=== PATIENT | female | born 1970 | race Caucasian/White ===

== ENCOUNTER 2017-06-05 19:41 | Observation (INO) | payer SELFPAY ==
[~2017-06-05] VITALS: Ht 149.9 cm; Wt 63.2 kg
[~2017-06-05 19:41] MED LIST: BENA25TA8 PO; ECOT81TA2 PO; FISH120014 PO; IBUP600T26 PO; ISOS30 PO; METH40TA9 PO; NITR.4 SL; STOO100T PO; THERM PO; ZOCO10TA PO
[2017-06-05 19:50] VITALS: BP 111/58; PULSE 77; RESP 20; TEMP 98.7; O2SAT 100
[2017-06-05] MEDS ORDERED: ASPI81CH CHEW (19:55)
[2017-06-05] MEDS ORDERED: SODIUM CHLORIDE 0.9% FLUSH 10 ML FLUSH IVF PRN (20:45)
--- NOTE | 2017-06-05 20:45 | PD ---
HPI Chief Complaint: Chest Pain Time Seen by Provider: 20:31 Travel History International Travel<30 days: No Contact w/Intl Traveler<30days: No Traveled to known affect area: No History of Present Illness HPI 46yo F with PMH of CAD s/p bypass 2013 presents to the ED with c/o left sided chest pain since yesterday. Described it as squeezing, intermittent, lasting hours and associated with sob, nausea, and diaphoresis. States it sometimes radiates up her left jaw. Took aspirin and nitroglycerin today. Denies any fever, cough, history of PE, vomiting, abdominal pain, focal weakness or numbness. PFSH Past Medical History Asthma: Yes Blood Disorders: No Anxiety: No Depression: Yes Heart Rhythm Problems: Yes Cancer: No Cardiac Catheterization: Yes Cardiomyopathy: Yes (CARDIAC SPASMS) Cardiovascular Problems: Yes High Cholesterol: Yes Chest Pain: Yes Congestive Heart Failure: Yes Cerebrovascular Accident: No Diminished Hearing: No Endocrine: No Gastrointestinal Disorders: No Genitourinary: No Headaches: Yes Hiatal Hernia: Yes (1995) Hypertension: Yes Immune Disorder: No Musculoskeletal: Yes (CHRONIC BACK PAIN AND ROTATOR CUFF) Neurologic: No Psychiatric: Yes Reproductive: No Respiratory: Yes ?: Not LMP: MONTHS AGO : 4 Para: 4 Tubal Ligation: Yes Past Surgical History Section: Yes Cholecystectomy: Yes Coronary Artery Bypass Graft: Yes Ear Surgery: Yes Genitourinary Surgery: Yes (GALL BLADDER REMOVED 1995) Tonsillectomy: Yes Other Surgery: Yes (HERNIA) Family History Family Myocardial Infarction: Yes Social History Alcohol Use: No Tobacco Use: Yes Substance Use: No Allergies-Medications (Allergen,Severity, Reaction): Coded Allergies: Codeine (Verified Adverse Reaction, Severe, VOMITING, 06/05/17) *MDRO Multi-Drug Resistant Organism (Verified Adverse Reaction, Unknown, ) MRSA Reported Meds & Prescriptions Reported Meds & Active Scripts Active Imdur 30 Mg (Isosorbide Mononitrate) 30 Mg Tabcr 30 Mg PO BID Zocor 10 mg (Simvastatin) 10 Mg Tab 1 Tab PO HS Nitroglycerin Tab 0.4 Mg Sl (Nitroglycerin) 0.4 Mg Subl 0.4 Mg SL Q5M PRN Reported Methadone (Methadone HCl) 40 Mg Tab 40 Mg PO DAILY Aspirin 81 Mg Chew 81 Mg CHEW DAILY Methadone Hcl (Methadone HCl) 40 Mg Tab 40 Mg PO DAILY@0600 Ibuprofen 600 Mg Tab 600 Mg PO Q8H PRN Review of Systems Except as stated in HPI: all other systems reviewed are Neg Physical Exam Narrative GENERAL: 46yo F in moderate distress. SKIN: Focused skin assessment warm/dry. HEAD: Atraumatic. Normocephalic. EYES: Pupils equal and round. No scleral icterus. No injection or drainage. ENT: No nasal bleeding or discharge. Mucous membranes pink and moist. NECK: Trachea midline. No JVD. CARDIOVASCULAR: Regular rate and rhythm. No murmur appreciated. RESPIRATORY: No accessory muscle use. Clear to auscultation. Breath sounds equal bilaterally. GASTROINTESTINAL: Abdomen soft, non-tender, nondistended. No rebound tenderness or guarding. MUSCULOSKELETAL: No obvious deformities. No clubbing. No cyanosis. No edema. NEUROLOGICAL: Awake and alert. No obvious cranial nerve deficits. Motor grossly within normal limits. Normal speech. PSYCHIATRIC: Appropriate mood and affect; insight and judgment normal. Data Data Last Documented VS Vital Signs Date Time Temp Pulse Resp B/P Pulse Ox O2 Delivery O2 Flow Rate FiO2 06/05/17 21:30 74 18 109/65 99 Room Air 06/05/17 19:50 98.7 Orders Basic Metabolic Panel (Bmp) (06/05/17 20:37) Ckmb (Isoenzyme) Profile (06/05/17 20:37) Complete Blood Count With Diff (06/05/17 20:37) Magnesium (Mg) (06/05/17 20:37) Prothrombin Time / Inr (Pt) (06/05/17 20:37) Act Partial Throm Time (Ptt) (06/05/17 20:37) Troponin I (06/05/17 20:37) Chest, Single Ap (06/05/17 20:37) Ecg Monitoring (06/05/17 20:37) Bilateral Bp Monitoring (06/05/17 20:37) Iv Access Insert/Monitor (06/05/17 20:37) Oximetry (06/05/17 20:37) Oxygen Administration (06/05/17 20:37) Sodium Chloride 0.9% Flush (Ns Flush) (06/05/17 20:45) Ondansetron Inj (Zofran Inj) (06/05/17 21:15) Electrocardiogram (06/05/17 19:53) Sodium Chlor 0.9% 1000 Ml Inj (Ns 1000 M (06/05/17 22:30) Metoclopramide Inj (Reglan Inj) (06/05/17 22:30) Acetaminophen (Tylenol) (06/05/17 22:30) Admit Order (Ed Use Only) (06/05/17 22:18) Labs Laboratory Tests Test 06/05/17 20:20 White Blood Count 16.2 TH/MM3 Red Blood Count 4.51 MIL/MM3 Hemoglobin 13.5 GM/DL Hematocrit 40.3 % Mean Corpuscular Volume 89.4 FL Mean Corpuscular Hemoglobin 29.9 PG Mean Corpuscular Hemoglobin 33.4 % Concent Red Cell Distribution Width 14.2 % Platelet Count 360 TH/MM3 Mean Platelet Volume 7.6 FL Neutrophils (%) (Auto) 55.4 % Lymphocytes (%) (Auto) 35.5 % Monocytes (%) (Auto) 5.2 % Eosinophils (%) (Auto) 3.1 % Basophils (%) (Auto) 0.8 % Neutrophils # (Auto) 9.0 TH/MM3 Lymphocytes # (Auto) 5.7 TH/MM3 Monocytes # (Auto) 0.8 TH/MM3 Eosinophils # (Auto) 0.5 TH/MM3 Basophils # (Auto) 0.1 TH/MM3 CBC Comment AUTO DIFF Differential Total Cells 100 Counted Neutrophils % (Manual) 63 % Lymphocytes % 31 % Monocytes % 4 % Eosinophils % 2 % Neutrophils # (Manual) 10.2 TH/MM3 Differential Comment FINAL DIFF MANUAL Platelet Estimate NORMAL Platelet Morphology Comment NORMAL Red Cell Morphology Comment NORMAL Prothrombin Time 10.4 SEC Prothromb Time International 0.9 RATIO Ratio Activated Partial 26.6 SEC Thromboplast Time Sodium Level 134 MEQ/L Potassium Level 3.6 MEQ/L Chloride Level 102 MEQ/L Carbon Dioxide Level 22.4 MEQ/L Anion Gap 10 MEQ/L Blood Urea Nitrogen 15 MG/DL Creatinine 0.50 MG/DL Estimat Glomerular Filtration 133 ML/MIN Rate Random Glucose 122 MG/DL Calcium Level 8.6 MG/DL Magnesium Level 2.2 MG/DL Total Creatine Kinase 59 U/L Troponin I LESS THAN 0.02 NG/ML MDM Medical Decision Making Medical Screen Exam Complete: Yes Emergency Medical Condition: Yes Interpretation(s) EKG: NSR 72bpm. Normal axis. TWI V2-V6. I, aVL. Differential Diagnosis ACS vs. Pneumonia vs. pericarditis Narrative Course 46yo F with PMH of CAD s/p CABG [address] Kerr here with c/o left sided chest pain that is typical. States that she took aspirin and nitro at home. Pt does not have a it desktop support specialist since she is waiting for her disability insurance. Last chest pain center visit was in 2014 and has not had any recent chest pain or work up. Labs reviewed, leukocytosis at 16.2. No fever. Troponin negative. CXR showed no acute disease. Pt was given zofran for nausea. Pt reevaluated at bedside and said she is now getting a headache thinks it was from the nitroglycerin she took. Acetaminophen ordered. BP is low but pt states her BP is always low and this is normal for her. She still feels nauseous. Will ordered reglan and reevaluate. Since pt has not had recent chest pain work up, will admit to chest pain center for serial EKG and cardiac enzyme. Diagnosis Primary Impression: Chest pain Qualified Code: R07.9 - Chest pain, unspecified type Admitting Information Admitting Physician Requests: Observation Lee Ann Evans DO Jun 05, 2017 20:45 Admitting Information Admitting Physician Requests: Observation Lee Ann Evans DO Jun 05, 2017 20:45
[2017-06-05 20:54] LABS: BASOPHIL # 0.1 TH/MM3 (0-0.2); BASOPHIL % 0.8 % (0.0-2.0); EOSINOPHIL # 0.5 TH/MM3 (0-0.4); EOSINOPHIL % 3.1 % (0.0-4.0); HEMATOCRIT 40.3 % (35.0-46.0); LYMPH % 35.5 % (9.0-44.0); LYMPHOCYTE # 5.7 TH/MM3 (1.0-4.8); MEAN CELL VOLUME 89.4 FL (80.0-100.0); MEAN CORPUSCULAR HEMOGLOBIN 29.9 PG (27.0-34.0); MEAN CORPUSCULAR HGB CONC 33.4 % (32.0-36.0); MONO % 5.2 % (0.0-8.0); NEUT % 55.4 % (16.0-70.0); PLATELET COUNT 360 TH/MM3 (150-450); RED BLOOD COUNT 4.51 MIL/MM3 (4.00-5.30); RED CELL DISTRIBUTION WIDTH 14.2 % (11.6-17.2); WHITE BLOOD COUNT 16.2 TH/MM3 (4.0-11.0)
--- NOTE | 2017-06-05 20:55 | RADRPT ---
EXAM DATE/TIME: 06/05/2017 20:33 [facility] COMPARISON: CHEST SINGLE AP, December 24, 2014, 13:30. INDICATIONS : Left sided chest pain and shortness of breath. MEDICAL HISTORY : None. SURGICAL HISTORY : CABG. ENCOUNTER: Initial ACUITY: 2 days PAIN SCORE: 6/10 LOCATION: Left chest FINDINGS: A single view of the chest demonstrates the lungs to be symmetrically aerated without evidence of mas s, infiltrate or effusion. The cardiomediastinal contours are unremarkable. Status post CABG. [place] us structures are intact. CONCLUSION: No acute disease. Aly Fritz MD on June 05, 2017 at 20:53 Board Certified Radiologist. This report was verified electronically.
[2017-06-05 20:58] LABS: HEMO FLAGS AUTO DIFF
[2017-06-05 21:13] LABS: APTT (PATIENT) 26.6 SEC (24.3-30.1); INTERNATIONAL NORMALIZED RATIO 0.9 RATIO; PROTHROMBIN TIME - PATIENT 10.4 SEC (9.8-11.6)
[2017-06-05] MEDS ORDERED: ONDANSETRON HCL 4 MG/2 ML VIAL IV PUSH ONE (21:15)
[2017-06-05 21:30] VITALS: BP 109/65; PULSE 74; RESP 18; O2SAT 99
[2017-06-05 21:30] LABS: ANION GAP 10 MEQ/L (5-15); BICARBONATE 22.4 MEQ/L (21.0-32.0); BLOOD UREA NITROGEN 15 MG/DL (7-18); CHLORIDE 102 MEQ/L (98-107); GLOMERULAR FILTRATION RATE 133 ML/MIN (>89); MAGNESIUM 2.2 MG/DL (1.5-2.5); POTASSIUM 3.6 MEQ/L (3.5-5.1); SODIUM (NA) 134 MEQ/L (136-145)
[2017-06-05 21:36] LABS: CREATINE KINASE 59 U/L (26-192)
[2017-06-05 21:44] LABS: EOSINOPHILS 2 % (0-4); NEUTROPHIL # MANUAL DIFF 10.2 TH/MM3 (1.8-7.7); PLATELET ESTIMATE SMEAR NORMAL (NORMAL); PLATELET MORPHOLOGY NORMAL (NORMAL); POLYS (SEG NEUTROPHILS) 63 % (16-70); SCAN/DIFF FINAL DIFF MANUAL; WBC DIFF SAMPLE 100
[2017-06-05] MEDS ORDERED: ACETAMINOPHEN 325 MG TAB PO ONE (22:30)
[2017-06-05] MEDS ORDERED: METOCLOPRAMIDE INJ 10 MG in SODIUM CHLORIDE 0.9% INJ 50 ML IV ONE (22:30)
[2017-06-05] MEDS ORDERED: SODIUM CHLORIDE 0.9% FLUSH 10 ML FLUSH IV FLUSH PRN (22:30)
[2017-06-05] MEDS ORDERED: SODIUM CHLOR 0.9% 1000 ML INJ 1,000 ML IV ONE (22:30)
[2017-06-05] MEDS ORDERED: SIMV10TA PO (22:37)
[2017-06-05] MEDS ORDERED: NITR1SUB3 SL (22:37)
[2017-06-05] MEDS ORDERED: DIPH25CA PO (22:37)
[2017-06-05] MEDS ORDERED: ISOS20TA PO (22:37)
[2017-06-05] MEDS ORDERED: METH40TA PO (22:37)
[2017-06-05 23:22] VITALS: O2SAT 98
[2017-06-05 23:57] LABS: CREATINE KINASE 66 U/L (26-192)
[2017-06-06] VITALS (7 sets, daily range): BP systolic 117–131; BP diastolic 68–71; PULSE 68–82; RESP 18–20; TEMP 98–98.5; O2SAT 95–100
[2017-06-06 02:47] LABS: CREATINE KINASE 62 U/L (26-192)
[2017-06-06] MEDS ORDERED: MORPHINE SULFATE 8 MG/ML INJ IV PUSH ONE (03:45)
[2017-06-06] MEDS ORDERED: MORPHINE SULFATE 8 MG/ML INJ IV PUSH PRN (06:00)
[2017-06-06] MEDS ORDERED: METHADONE HCL 10 MG TAB PO SCH ×2 (06:00)
--- NOTE | 2017-06-06 07:05 | EKG ---
Date Performed: 06/05/2017 Time Performed: 19:53:45 PTAGE: 46 years EKG: Sinus rhythm ST/T-WAVE ABNORMALITY, CONSIDER ANTEROLATERAL ISCHEMIA ABNORMAL ECG PREVIOUS TRACING : 12/24/2014 21.46 Compared to previous tracing, anterolateral T wave inversio n is now present. DOCTOR: Yohan Santiago Interpretating Date/Time 06/06/2017 07:03:12
[2017-06-06] MEDS ORDERED: ONDANSETRON HCL 4 MG/2 ML VIAL IV PUSH PRN (08:00)
[2017-06-06] MEDS ORDERED: ISOSORBIDE MONONITRATE 30 MG TAB PO SCH (09:00)
[2017-06-06] MEDS ORDERED: SODIUM CHLORIDE 0.9% FLUSH 10 ML FLUSH IV FLUSH SCH (09:00)
[2017-06-06] MEDS ORDERED: REGADENOSON INJ 0.4 MG/5 ML SYR ONE (09:51)
--- NOTE | 2017-06-06 11:11 | RADRPT ---
EXAM DATE/TIME: 06/06/2017 09:16 [facility] COMPARISON: No previous studies available for comparison. INDICATIONS : Left sided chest pain. Angina. Myocardial infarction. DOSE: 26.2 mCi Tc99m Myoview at stress. 8.1 mCi Tc99m Myoview at rest. 0.4 mg Lexiscan STRESS SYMPTOMS: Shortness of breath with nausea. EJECTION FRACTION: > 70% MEDICAL HISTORY : Hypertension. Cardiovascular disease Smoker and asthma. SURGICAL HISTORY : CABG Cholecystectomy. Tubal ligation. ENCOUNTER: Initial ACUITY: 2 days PAIN SCALE: 2/10 LOCATION: Left chest TECHNIQUE: The patient underwent pharmacologic stress with infusion of prescribed dose. Continuous ECG tracing was monitored during stress. Gated SPECT imaging was performed after stress and conventional SPECT i maging was performed at rest. The examination was performed on a SPECT/CT scanner, both attenuation and non-corrected datasets were reviewed. FINDINGS: DISTRIBUTION: The maximum perfused segment at stress is in the anterior wall. PERFUSION STUDY: The pattern of perfusion at stress is within normal limits. GATED STUDY: There is intact wall motion and thickening without hypokinetic or dyskinetic segments. CONCLUSION: No reversible defects observed to suggest acute ischemia. RISK CATEGORY: Low Star Padgett Jr., MD on June 06, 2017 at 11:07 Board Certified Radiologist. This report was verified electronically.
--- NOTE | 2017-06-06 12:52 | HHI.HP ---
HPI Primary Care Physician No Primary Care Physician Chief Complaint Chest pain History of Present Illness This is a 46-year-old female with history of CAD with a single-vessel bypass in 2013 that presents to ED with a complaint of developing a discomfort yesterday while smoking a cigarette. Patient states she had quit smoking after she had her bypass and yesterday was a first-time she smoked a cigarette. She describes it as a discomfort in her jaw and is still there at this time. Nothing seems to worsen or improve it. She was short of breath and nauseous but no diaphoresis. Cannot recall recent stress testing and states she is not followed by pick out hand. Upon reviewing records she had a cardiac catheterization in 2014 revealing the BENTON to LAD being patent. Review of Systems General: Patient denies fevers, chills recent, and recent travel HEENT: Patient denies headache, sore throat, difficulty swallowing. Cardiovascular: Has the chest discomfort as mentioned above. Denies sensation of heart beating rapidly or irregularly. No syncope. Denies diaphoresis. Respiratory: She was short of breath. Denies inspirational chest discomfort. Denies coughing wheezing or hemoptysis. GI: She was nauseous. Patient denies vomiting, diarrhea, abdominal pain, bloody stools. Musculoskeletal: Patient denies joint pain or edema. Denies calf pain or edema. Neurovascular: Patient denies numbness, tingling, weakness in extremities. Denies headache. Endocrine: Denies polyuria and polydipsia. Hematologic: Denies easy bruising. Skin: Denies rash or itching. Past Family Social History Allergies: Coded Allergies: Codeine (Verified Adverse Reaction, Severe, VOMITING, 06/05/17) *MDRO Multi-Drug Resistant Organism (Verified Adverse Reaction, Unknown, ) MRSA Past Medical History CAD with single-vessel bypass 2013. Hyperlipidemia hypertension. Denies diabetes. Past Surgical History Single-vessel bypass 2013. Cardiac catheterization 2014 without intervention. BENTON to LAD was patent. Reported Medications Reported Meds & Active Scripts Active Imdur 30 Mg (Isosorbide Mononitrate) 30 Mg Tabcr 30 Mg PO BID Zocor 10 mg (Simvastatin) 10 Mg Tab 1 Tab PO HS Nitroglycerin Tab 0.4 Mg Sl (Nitroglycerin) 0.4 Mg Subl 0.4 Mg SL Q5M PRN Reported Methadone (Methadone HCl) 40 Mg Tab 40 Mg PO DAILY Aspirin 81 Mg Chew 81 Mg CHEW DAILY Methadone Hcl (Methadone HCl) 40 Mg Tab 40 Mg PO DAILY@0600 Ibuprofen 600 Mg Tab 600 Mg PO Q8H PRN Active Ordered Medications Current Medications Medications (Trade) Dose Ordered Sig/Jose Guadalupe Route Start Time Stop Time Status Last Admin (NS Flush) 2 ml UNSCH PRN IV FLUSH 06/05/17 22:30 06/05/17 23:07 (NS Flush) 2 ml BID IV FLUSH 06/06/17 09:00 06/06/17 07:56 (Morphine Inj) 6 mg Q5H PRN IV PUSH 06/06/17 06:00 (Dolophine) 40 mg DAILY@06 PO 06/06/17 06:00 06/06/17 06:02 (Zofran Inj) 4 mg Q6HR PRN IV PUSH 06/06/17 08:00 06/06/17 07:56 (Imdur) 30 mg BID PO 06/06/17 09:00 06/06/17 10:54 (Pravachol) 20 mg HS PO 06/06/17 21:00 Family History There is family history of CAD. Social History Patient essentially quit smoking after a bypass in 2013 and had one cigarette yesterday. Denies alcohol or illicit drugs. She was a one pack-a-day smoker for 30 years prior to quitting. Physical Exam Vital Signs Vital Signs Date Time Temp Pulse Resp B/P Pulse Ox O2 Delivery O2 Flow Rate FiO2 06/06/17 08:40 98.5 76 20 126/68 100 06/06/17 08:00 81 06/06/17 04:26 82 06/06/17 03:54 98.0 68 18 117/71 95 06/06/17 01:20 76 06/06/17 00:30 98.1 74 18 131/68 97 06/05/17 23:22 98 06/05/17 21:30 74 18 109/65 99 Room Air 06/05/17 20:39 100 Room Air 06/05/17 20:18 100 06/05/17 19:50 98.7 77 20 111/58 100 Physical Exam GENERAL: This is a well-nourished, well-developed patient, in no apparent distress. Patient speaks in clear complete sentences. Patient is pleasant. HEENT: Head is atraumatic and normocephalic. Neck is supple without lymphadenopathy and trachea is midline. No JVD or carotid bruits. CARDIOVASCULAR: Regular rate and rhythm without murmurs, gallops, or rubs. RESPIRATORY: Clear to auscultation. Breath sounds equal bilaterally. No wheezes , rales, or rhonchi. Chest wall is nontender. No use of accessory muscles. GASTROINTESTINAL: Abdomen is nontender, nondistended. Abdomen soft. No obvious pulsatile mass or bruit. No CVA tenderness. Strong femoral pulses bilaterally. Normal bowel sounds in all quadrants. MUSCULOSKELETAL: Patient is moving upper and lower extremities freely. No calf tenderness or edema, no Homans sign. Strong pulses in upper and lower extremities. NEUROLOGICAL: Patient is alert and oriented. Cranial nerves 2-12 are grossly intact. No focal deficits and speech is clear. SKIN: No rash and turgor is normal. Laboratory Laboratory Tests Test 06/05/17 06/05/17 06/06/17 20:20 23:12 02:01 White Blood Count 16.2 Red Blood Count 4.51 Hemoglobin 13.5 Hematocrit 40.3 Mean Corpuscular Volume 89.4 Mean Corpuscular Hemoglobin 29.9 Mean Corpuscular Hemoglobin 33.4 Concent Red Cell Distribution Width 14.2 Platelet Count 360 Mean Platelet Volume 7.6 Neutrophils (%) (Auto) 55.4 Lymphocytes (%) (Auto) 35.5 Monocytes (%) (Auto) 5.2 Eosinophils (%) (Auto) 3.1 Basophils (%) (Auto) 0.8 Neutrophils # (Auto) 9.0 Lymphocytes # (Auto) 5.7 Monocytes # (Auto) 0.8 Eosinophils # (Auto) 0.5 Basophils # (Auto) 0.1 CBC Comment AUTO DIFF Differential Total Cells 100 Counted Neutrophils % (Manual) 63 Lymphocytes % 31 Monocytes % 4 Eosinophils % 2 Neutrophils # (Manual) 10.2 Differential Comment FINAL DIFF MANUAL Platelet Estimate NORMAL Platelet Morphology Comment NORMAL Red Cell Morphology Comment NORMAL Prothrombin Time 10.4 Prothromb Time International 0.9 Ratio Activated Partial 26.6 Thromboplast Time Sodium Level 134 Potassium Level 3.6 Chloride Level 102 Carbon Dioxide Level 22.4 Anion Gap 10 Blood Urea Nitrogen 15 Creatinine 0.50 Estimat Glomerular Filtration 133 Rate Random Glucose 122 Calcium Level 8.6 Magnesium Level 2.2 Total Creatine Kinase 59 66 62 Troponin I LESS THAN 0.02 LESS THAN 0.02 LESS THAN 0.02 Result Diagram: 06/05/17201906/05/172019 Imaging Last 48 hours Impressions Myocardial Perfusion Scan Nuc Med 06/06/17 0000 Signed Impressions: Service Date/Time: Tuesday, June 06, 2017 09:16 - CONCLUSION: No reversible defects observed to suggest acute ischemia. RISK CATEGORY: Low Star Padgett Jr., MD Chest X-Ray 06/05/172036 Signed Impressions: Service Date/Time: Monday, June 05, 2017 20:33 - CONCLUSION: No acute disease. Aly Fritz MD Course EKGs have sinus rhythm with nonspecific T-wave changes. Assessment and Plan Assessment and Plan * Chest pain: Patient has had serial cardiac enzymes and EKGs for ruling out purposes. She has been seen by Dr. Sainz cardiology in the chest pain center. She will undergo a Lexiscan in a nonischemic will be discharged home with instructions to follow-up with a local primary care physician as well as pick out hand. I spoke with patient assistance and they will be providing a blue card so she can follow-up with the clinic with Dr. estefani agosto. * CAD: This will be reassessed with stress testing. * Hypertension: Continue current medication. * Hyperlipidemia: Continue current medication stable at this time. She is agreeable to this plan. Benny Gerardo Jun 06, 2017 12:52
--- NOTE | 2017-06-06 13:01 | HHI.DCPOC ---
Discharge Care Plan Diagnosis: (1) Chest pain (2) CAD (coronary artery disease) (3) Hx of CABG (4) Hypertension (5) Hyperlipidemia Goals to Promote Your Health * To prevent worsening of your condition and complications * To maintain your health at the optimal level Directions to Meet Your Goals Take your medications as prescribed Follow your dietary instruction Follow activity as directed Keep your appointments as scheduled Take your immunizations and boosters as scheduled If your symptoms worsen call your PCP, if no PCP go to Urgent Care Center or Emergency Room Smoking is Dangerous to Your Health. Avoid second hand smoke Call the 24-hour hour crisis hotline for domestic abuse at Benny Gerardo Jun 06, 2017 13:01
[2017-06-06] MEDS ORDERED: PRAVASTATIN SOD 20 MG TAB PO SCH (21:00)
--- NOTE | 2017-06-07 12:21 | TR ---
Date Performed: 06/06/2017 Time Performed: 10:05:39 DOCTOR: Zainab Sainz DRUG LIST: CLINICAL HISTORY: ANGINA REASON FOR TEST: Angina REASON FOR ENDING: OBSERVATION: CONCLUSION: Lexiscan stress test was performed under standard four minute protocol. Radionuclid e was injected one minute prior to ending the test. No electrocardiographic abormalities were present to suggest ischemia. Nuclear imaging and interpretation are pending. COMMENTS:
--- NOTE | 2017-06-07 12:25 | EKG ---
Date Performed: 06/05/2017 Time Performed: 23:19:12 PTAGE: 46 years EKG: Sinus rhythm MODERATE T-WAVE ABNORMALITY, CONSIDER ANTEROLATERAL ISCHEMIA ABNORMAL ECG Since PREVIOUS TRACING , no significant change noted PREVIOUS TRACIN06/05/2017 19.53 DOCTOR: Zainab Sainz Interpretating Date/Time 06/07/2017 12:24:20
--- NOTE | 2017-06-07 12:26 | EKG ---
Date Performed: 06/06/2017 Time Performed: 02:53:28 PTAGE: 46 years EKG: Sinus rhythm NONSPECIFIC T-WAVE ABNORMALITY BORDERLINE ECG Since PREVIOUS TRACING , no significant change noted PREVIOUS TRACIN06/05/2017 23.19 DOCTOR: Zainab Sainz Interpretating Date/Time 06/07/2017 12:24:47
== END 2017-06-06 13:35 | disposition home or self-care (01) ==
LOC: NEPC 19:41 → NEDA 22:19 → NEPHCDU 06-06 00:24
DX: R07.89 Other chest pain (principal); R06.02 Shortness of breath; R11.0 Nausea; R94.31 Abnormal electrocardiogram [ECG] [EKG]; R51 Headache; D72.829 Elevated white blood cell count, unspecified; R68.84 Jaw pain; R61 Generalized hyperhidrosis; I25.119 Atherosclerotic heart disease of native coronary artery with unspecified angina pectoris; I11.0 Hypertensive heart disease with heart failure; I50.9 Heart failure, unspecified; E78.5 Hyperlipidemia, unspecified; I25.2 Old myocardial infarction; J45.909 Unspecified asthma, uncomplicated; E78.00 Pure hypercholesterolemia, unspecified; I42.9 Cardiomyopathy, unspecified; F32.9 Major depressive disorder, single episode, unspecified; M54.9 Dorsalgia, unspecified; G89.29 Other chronic pain; F17.210 Nicotine dependence, cigarettes, uncomplicated; Z95.1 Presence of aortocoronary bypass graft; Z79.899 Other long term (current) drug therapy; Z79.82 Long term (current) use of aspirin
CPT/HCPCS: 71010; 78452; 80048; 82550; 83735; 84484; 85007; 85027; 85610; 85730; 93005; 93017; 96374; 99285; A9502; G0378; J2270; J2405; J2765; J2785; J7030